=== PATIENT | male | born 1950 | race Caucasian/White ===

== ENCOUNTER 2024-08-25 12:10 | Outpatient (AMB) | payer MEDICARE, SELFPAY ==
[2024-08-25 12:36] VITALS: BP 118/70; PULSE 70; RESP 18; TEMP 36.6; O2SAT 96; BMI 23.1
--- NOTE | 2024-08-25 12:36 | MHC.PC.OV ---
Vital Signs 08/25/24 12:36 Height 5 ft 5.87 in Weight 142 lb 9.6 oz BMI 23.1 BP 118/70 Blood Pressure Location Lt brachial Position Sitting Respiration 18 Pulse 70 Pulse Source Pulse Oximeter Temp 97.8 F Temp Source Oral Pulse Oximetry (%) 96 Oxygen Delivery Method Room Air Intake Visit Reasons: establish care /Thyroid Intake Note: Patient is a new patient here to establish. Transferring care from Dr. Ebenezer Rubio in [place], [place]. Medical records Release of Information has been signed today. Medical records have not yet been received. However, patient has records of lab results and COVID vaccinations, in-hand today. Motocross Racer Required: No Accompanied by: Self / Same As Patient Allergies aspirin Allergy (Severe, Verified 08/25/24 13:07) Anaphylaxis ibuprofen [From Advil] Allergy (Severe, Verified 08/25/24 13:07) Anaphylaxis Medication List - Last Reconciled 08/25/24 by ZACH Soto atorvastatin 20 mg PO DAILY levothyroxine (Synthroid) 50 mcg PO DAILY Tobacco use date assessed: 08/25/24 Fall risk assessment: No Falls in past year Last assessed Fall Risk: 08/25/24 Dental Screening Dental Screen Date: 08/25/24 Did you have a dental visit in the last 12 months?: Yes Did you have a dental problem in the last 6 months where you did not have access to dental care?: No Was dental information given to patient?: Patient has dentist HPI establish care /Thyroid HPI Details Previous PCP: Dr. Ebenezer Rubio in [place], [place] Last visit:June, Last PE: same Specialist: no, He was going to the global program manager, but stopped OBGYN:n/a Past medical history: Hypothyroidism, high cholesterol Medications: Family HX: Father-was born with congenital issue in is kidney, causing back flow resulting frequent glomerulonephritis, Reports that his father had dialysis for 12 years, but he from Parkinson's disease, both sides of his family had diabetes, but none of his parents had it, sister of breast cancer at 57 y/o Problem: The patient reports that he is feeling well and there is no problem He is just here to establish care Reports that he had a colonoscopy- in March 2024, a benign polyp was found and as far as he know there was no concern The patient denies chest pain, sob, heart palpitation, or dizziness Denies any changes in bowel habits or any urinary symptoms PFSH Medical History (Updated 08/25/24 @ 13:50 by ZACH Soto) High cholesterol Hypothyroidism Surgical History History of tonsillectomy and adenoidectomy Family History Father Vesicoureteral reflux Glomerulonephritis Parkinson disease Mother Hypotension Other Congenital kidney disease Diabetes Social History Household Members: Spouse Household Members Other:: Adopted Son [facility] Do you presently have visiting nurse or other home services: No 75 years or older and lives alone: No Alcohol intake: never Patient Tobacco Use Status: Never used Tobacco e-Cigarette/Vaping Use: Never Used service: No Current occupational status: retired Cognitive needs: No Hearing needs: No Vision needs: Yes Questionnaire PHQ-9 Over the last 2 weeks, how often have you been bothered by any of the following problems? 1. Little interest or pleasure in doing things: not at all 2. Feeling down, depressed, or hopeless: not at all 3. Trouble falling or staying asleep, or sleeping too much: not at all 4. Feeling tired or having little energy: not at all 5. Poor appetite or overeating: not at all 6. Feeling bad about yourself - or that you are a failure or have let yourself or your family down: not at all 7. Trouble concentrating on things, such as reading the newspaper or watching television: not at all 8. Moving or speaking so slowly that other people could have noticed. Or the opposite - being so fidgety or restless that you have been moving around a lot more than usual: not at all 9. Thoughts that you would be better off or of hurting yourself in some way: not at all Total score: 0 Depression Screening Interpretation: Negative Depression Screening Done: Yes 18849 - PHQ-9 Billing: Yes Source: Developed by Drs. Arun Quiles, Yessica Hunter, Zachary Colunga and colleagues, with an educational yennifer from [employer]. Thrive Questionnaire Date Thrive assessed: 08/25/24 I am a: Patient What is your living situation today?: I have a steady place to live Within the past 12 months, did the food you bought not last and you didn't have the money to get more?: Never true Within the past 12 months, did you worry whether your food would run out before you got money to buy more?: Never true Do you have trouble paying for medicines?: No Do you have trouble getting transportation to medical appointments?: No Do you have trouble paying your heating and electricity bill?: No Do you have trouble taking care of your child, family member or friend?: No Do you have trouble with day-to-day activities such as bathing, preparing meals, shopping, managing finances, etc.?: No Are you currently unemployed and looking for a job?: No Are you interested in more education?: No Please select the resources that you would like help with: Paying for medicine Currently or been in a relationship where the following occur: No concerns reported THRIVE Score: 0 AUDIT C Alcohol Use Questionnaire (AUDIT-C) 1. How often do you have a drink containing alcohol?: Never 3. How often do you have six or more drinks on one occasion?: Never Total Score: 0 YOGESH-7 AMB Questionnaire YOGESH-7 Date YOGESH - 7 assessed: 08/25/24 Feeling nervous, anxious, or on edge: 0 = Not at all Not being able to stop or control worryin = Not at all Worrying too much about different things: 0 = Not at all Trouble relaxin = Not at all Being so restless that it is hard to sit still: 0 = Not at all Becoming easily annoyed or irritable: 0 = Not at all Feeling afraid as if something awful might happen: 0 = Not at all Total YOGESH-7 score (0-4 normal; 5-9 mild; 10-14 moderate; 15-21 severe): 0 Source: Developed by Drs. Arun Quiles, Yessica Hunter, Zachary Colunga and colleagues, with an educational yennifer from [employer]. YOGESH-7 Assessment Billing YOGESH-7 Assessment Tool: YOGESH-7 Assessment 04752 Review of Systems Const Denies headache(s) Eyes Denies loss of vision ENT Denies vertigo, Denies dizziness, Denies headache(s) and Denies sore throat Card Denies chest pain, Denies leg edema and Denies lightheadedness Resp Denies cough, Denies hemoptysis and Denies wheezing GI Denies abdominal pain, Denies melena, Denies constipation, Denies diarrhea and Denies vomiting Denies dysuria, Denies urinary frequency and Denies urinary urgency Musc Denies arthralgias, Denies joint swelling, Denies numbness and Denies tingling Neuro Denies Abnormal speech present, Denies behavioral changes, Denies vertigo, Denies dizziness, Denies headache(s), Denies loss of vision, Denies memory loss, Denies numbness and Denies tingling Psych Denies anxiety, Denies behavioral changes, Denies depression, Denies memory loss and Denies panic attacks Brad/Lymph Denies easy bleeding and Denies easy bruising Aller/Immun Denies wheezing Physical exam (Primary Care) Vital Signs: Last Vital Signs Temp 97.8 F 08/25/24 12:36 Pulse 70 08/25/24 12:36 Resp 18 08/25/24 12:36 BP 118/70 08/25/24 12:36 Pulse Ox 96 08/25/24 12:36 Oxygen Delivery Method Room Air 08/25/24 12:36 BMI result Body Mass Index 23.1 Tobacco/Smoking Status: Tobacco use Status Tobacco use date assessed 08/25/24 08/25/24 12:40 Patient Tobacco Use Status Never used Tobacco 08/25/24 12:59 e-Cigarette/Vaping Use Never Used 08/25/24 12:59 PHQ-9: PHQ-9 Score PHQ-9: Total score 0 08/25/24 13:29 Depression Screening Interpretation: Negative Thrive Assessment: Date of Thrive Assessment Date Thrive assessed 08/25/24 08/25/24 12:40 Currently or been in a relationship where the following occur: No concerns reported Const General: healthy appearing, no acute distress, alert and awake Nutritional Appearance: well nourished Orientation/consciousness: oriented to person, oriented to place and oriented to time HENMT Ears: TM's normal bilaterally General nose exam: Normal nasal mucous membranes and turbinates present Eyes Conjunctivae: conjunctivae normal Sclerae: sclerae normal Pupils: Equal, round and reactive pupils present Neck Neck: Yes no lymphadenopathy and Yes no JVD Thyroid: Thyroid normal Carotids: no bruits Resp Effort & Inspection: normal respiratory effort and not tachypneic Auscultation: no crackles, no rales, no rhonchi and no wheezes Cardio Rate: regular rate Rhythm: regular rhythm Heart sounds: no murmurs and normal S1 and S2 GI Palpation (GI): Soft to palpation, nontender, no hepatomegaly and no splenomegaly Auscultation: normal bowel sounds Skin General skin exam: no rashes or lesions noted and dry skin Neuro General: oriented to person, oriented to place and oriented to time Cranial nerves: Yes Equal, round and reactive pupils present Speech: No Abnormal speech present Gait exam (Neuro): Normal gait present Motor exam (neuro): no tremor noted Extrem Right upper extremity: full ROM Left upper extremity: full ROM Right lower extremity: full ROM; no edema Left lower extremity: full ROM; no edema Psych Mental Status: mental status grossly normal Speech and movement: Normal speech and movement present Affect: normal affect Attitude: cooperative Thought process: Normal thought process present Coding Level of Care Code New Pt Level 4 (93892) Diagnoses Hypothyroidism, unspecified type E03.9 Hypothyroidism type: unspecified High cholesterol E78.00 Elevated liver enzymes R74.8 Additional Codes YOGESH-7 Assessment Billing - YOGESH-7 Assessment Tool: YOGESH-7 Assessment 67522 ([id number]) PHQ-9 - 61643 - PHQ-9 Billing: Yes ([id number]) Time Spent (min) 39 Assessment & Plan Assessment & Plan (1) Hypothyroidism: Code(s): E03.9 - Hypothyroidism, unspecified Category: Medical Qualifiers: Hypothyroidism type: unspecified Qualified Code(s): E03.9 - Hypothyroidism, unspecified Plan: Continue levothyroxine 50 mcg daily Will recheck labs in 3 months (2) High cholesterol: Code(s): E78.00 - Pure hypercholesterolemia, unspecified Category: Medical Plan: cholesterol slightly elevated continue atorvastatin 20 mg daily Will recheck lipid in 3 month (3) Elevated liver enzymes: Code(s): R74.8 - Abnormal levels of other serum enzymes Category: Medical Plan: LFTs slightly elevated, discussed with the patient to avoid the common triggers like alcohom and Tylenol will recheck labs in the 3 months Orders: Orders Vitamin D 25-OH Total 3 Months E03.9 - Hypothyroidism, unspecified, E78.00 - Pure hypercholesterolemia, unspecified TSH reflex Free T4 3 Months E03.9 - Hypothyroidism, unspecified, E78.00 - Pure hypercholesterolemia, unspecified UA CC w/rflx Micro + Cult 3 Months E03.9 - Hypothyroidism, unspecified, E78.00 - Pure hypercholesterolemia, unspecified Glucose Fasting 3 Months E03.9 - Hypothyroidism, unspecified, E78.00 - Pure hypercholesterolemia, unspecified Hemoglobin A1c 3 Months E03.9 - Hypothyroidism, unspecified, E78.00 - Pure hypercholesterolemia, unspecified Complete Blood Count Auto Diff 3 Months E03.9 - Hypothyroidism, unspecified, E78.00 - Pure hypercholesterolemia, unspecified Comprehensive [place]. Panel Fast 3 Months E03.9 - Hypothyroidism, unspecified, E78.00 - Pure hypercholesterolemia, unspecified Lipid Panel 3 Months E03.9 - Hypothyroidism, unspecified, E78.00 - Pure hypercholesterolemia, unspecified Free T4 (Free Thyroxine) 3 Months E03.9 - Hypothyroidism, unspecified, E78.00 - Pure hypercholesterolemia, unspecified
== END 2024-08-25 13:40 | disposition home or self-care (01) ==
LOC: HO.HMCH 12:11
DX: E03.9 Hypothyroidism, unspecified (principal); E78.00 Pure hypercholesterolemia, unspecified; R74.8 Abnormal levels of other serum enzymes

== ENCOUNTER → 2024-08-25 12:10 | Outpatient (BNVA) | payer MEDICARE, SELFPAY | DX: E03.9 Hypothyroidism, unspecified (principal); E78.00 Pure hypercholesterolemia, unspecified; R74.8 Abnormal levels of other serum enzymes | CPT/HCPCS: 96127; 99202 ==

== ENCOUNTER 2024-10-01 10:09 | Outpatient (REF) | payer MEDICARE, SELFPAY ==
[2024-10-01 10:46] LABS: MANUAL DIFF FLAG NO
[2024-10-01 10:58] LABS: Basophils Absolute Auto 0.1 X10*3/uL (0.0-0.2); Eosinophils Absolute Auto 0.3 X10*3/uL (0.0-0.4); Eosinophils Percent Auto 3.8 % (0-4); Hematocrit 39.8 % (42.0-52.0); Hemoglobin 13.5 g/dl (14.0-18.0); Imm Gran Pct Auto 1.3 % (0.0-0.4); Lymphocytes Absolute Auto 1.5 X10*3/uL (1.2-4.9); Lymphocytes Percent Auto 18.4 % (20-40); Mean Corpuscular HGB Conc 33.9 g/dl (31.0-36.0); Mean Corpuscular Hemoglobin 30.7 pg (27.0-33.0); Mean Corpuscular Volume 90.5 fL (80.0-98.0); Mean Platelet Volume 9.3 fL (9.4-12.4); Monocytes Percent Auto 11.9 % (2-11); Neutrophils Absolute Auto 5.1 x10*3/uL (2.0-8.3); Neutrophils Percent Auto 63.6 % (45-73); Platelet Count 319 X10*3/uL (160-400); Red Cell Distribution Width 15.3 % (11.0-16.0)
[2024-10-01 11:23] LABS: Alanine Aminotransferase 34 U/L (0-40); Albumin Level 4.1 g/dL (3.5-5.0); Anion Gap 10 (12-20); Aspartate Amino Transferase 26 U/L (5-37); Bilirubin Total 0.6 mg/dL (0.0-1.0); Blood Urea Nitrogen 18 mg/dL (9-16); Calcium 9.6 mg/dL (8.4-10.2); Carbon Dioxide 29 mmol/L (22-29); Chloride 105 mmol/L (96-108); Estimated Glomerular Filt Rate > 60; Glucose Random 86 mg/dL (60-115); Potassium 4.1 mmol/L (3.3-5.1); Sodium 140 mmol/L (135-145); Total Protein 6.8 g/dL (6.5-8.0)
[2024-10-01 19:44] LABS: Alkaline Phosphatase 72 U/L (39-117)
== END 2024-10-01 10:10 | disposition home or self-care (01) ==
LOC: HO.LAB 10:09
PROVIDERS: Visit Provider Surgery
DX: K40.20 Bilateral inguinal hernia, without obstruction or gangrene, not specified as recurrent (principal)
CPT/HCPCS: 36415; 80053; 85025

== ENCOUNTER 2024-10-20 11:14 | Outpatient (REF) | payer MEDICARE, SELFPAY ==
--- NOTE | ~2024-10-20 | CT_ITS ---
EXAMINATION: CT ABDOMEN AND PELVIS WITH CONTRAST CLINICAL INFORMATION: Bilateral inguinal hernias. COMPARISON: None available. TECHNIQUE: Multidetector volumetric images were obtained from the superior aspect of the liver through the pubic symphysis following administration 85 mL of Omnipaque 350 intravenous contrast. Sagittal and coronal reformatted images were obtained on the technologist's workstation. Oral contrast: Yes This CT examination was performed using dose optimization techniques as appropriate, variously including the following: *Automated exposure control *Adjustment of mA and/or kV according to patient size (this includes techniques or standardized protocols for targeted exams where dose is matched to indication/reason for exam; i.e. extremities or head) *Use of iterative reconstruction technique DLP: 386 mGy centimeter. FINDINGS: LUNG BASES: No acute airspace disease. LIVER, GALLBLADDER, AND BILIARY TREE: Liver measures 15 cm. No focal mass. Portal veins, hepatic veins and intrahepatic portion of the IVC are patent. No intrahepatic biliary ductal dilatation. Small focal fatty infiltration adjacent to the falciform ligament. No pericholecystic fluid collection or gallbladder wall thickening. No extrahepatic biliary ductal dilatation. PANCREAS: No focal mass. No peripancreatic fluid collection. No main pancreatic ductal dilatation. SPLEEN: Subcentimeter. No focal lesion. ADRENAL GLANDS: No nodular lesion. KIDNEYS AND URETERS: No hydronephrosis. No gross nephrolithiasis. Normal enhancement pattern of the renal parenchyma. BLADDER: Fluid-filled. GASTROINTESTINAL TRACT: Abundant stool, right hemicolon and transverse colon. No intestinal obstruction pattern. Appendix is normal. Terminal ileum is normal. No pneumatosis intestinalis. Questionable wall thickening, second portion duodenum. ABDOMINAL WALL: Small right inguinal hernia containing a protrusion of the anterior right lateral wall of the bladder. Small left inguinal hernia containing a short segment demonstrated nondilated sigmoid colon. Small fat-containing umbilical hernia. LYMPH NODES: Nonspecific prominent mesenteric and retroperitoneum. VASCULAR: No aneurysm or dissection, abdominal aorta. Calcified plaques in the abdominal aorta wall and the origin of the iliac arteries and the iliac arteries. Celiac trunk as seen separate origin for the pancreatic, hepatic arteries. PELVIC VISCERA: Not enlarged prostate gland or seminal vesicles. OSSEOUS STRUCTURES: Facet joint hypertrophy at L4-5 and L5-S1. Spina bifida occulta S1. Degenerative changes in the sacroiliac joints and ischium. Subchondral cyst formation in the acetabular and femoral heads. S-shaped curvature of the thoracolumbar spine. Grade 1 retrolisthesis L1 to and L2-[address]/CT abdomen pelvis w IV con IMPRESSION: Bilateral inguinal hernias on the right containing small portion of the bladder and on the left short segment nondilated sigmoid colon. Small fat-containing hernia. Multilevel thoracolumbar spondylosis and scoliosis resulting in grade 1 retrolisthesis L1-2 and L2-3. Fleischner guidelines were followed. Electronically signed by: Robert Resendez MD 10/20/2024 02:04 PM EDT RP
[2024-10-20] MEDS: iohexoL 350 MG/ML 100 ML INFUS..BTL IV (13:43)
[2024-10-20] MEDS: Barium Sulfate Oral (Berry) 450 ML ORAL.SUSP 900 ML PO (13:46)
[2024-10-20 15:26] LABS: Creatinine POC 0.9 mg/dL (0.5-1.4); GFR POC > 60
== END 2024-10-20 11:15 | disposition home or self-care (01) ==
LOC: HO.CT 11:14
PROVIDERS: Visit Provider Surgery
DX: K40.20 Bilateral inguinal hernia, without obstruction or gangrene, not specified as recurrent (principal)
CPT/HCPCS: 74177; 82565; Q9967

== ENCOUNTER → 2024-10-20 13:39 | Outpatient (BNV) | payer MEDICARE, SELFPAY | PROVIDERS: Visit Provider Radiology Diagnostic Radiology | DX: K40.90 Unilateral inguinal hernia, without obstruction or gangrene, not specified as recurrent (principal); M47.817 Spondylosis without myelopathy or radiculopathy, lumbosacral region | CPT/HCPCS: 74177 ==

== ENCOUNTER 2025-03-09 06:42 | Outpatient (REF) | payer MEDICARE, SELFPAY ==
[2025-03-09 06:52] LABS: MANUAL DIFF FLAG NO
[2025-03-09 07:46] LABS: Hematocrit 40.2 % (42.0-52.0); Hemoglobin 13.9 g/dl (14.0-18.0); Imm Gran Abs Auto 0.03 X10*3/uL (0.00-0.03); Imm Gran Pct Auto 0.5 % (0.0-0.4); Lymphocytes Absolute Auto 1.3 X10*3/uL (1.2-4.9); Mean Corpuscular HGB Conc 34.6 g/dl (31.0-36.0); Mean Corpuscular Hemoglobin 31.4 pg (27.0-33.0); Mean Corpuscular Volume 90.7 fL (80.0-98.0); NRBC Abs Auto 0.000 X10*3/uL (0.0-0.012); NRBC Pct Auto 0.0 /100WBC (0.0-0.2); Platelet Count 322 X10*3/uL (160-400); Red Blood Count 4.43 X10*6/uL (4.60-5.80); White Blood Count 6.2 X10*3/uL (4.8-10.8)
[2025-03-09 07:57] LABS: Hemoglobin A1C 135.0247 umol/L; Total Hemoglobin (HGBA1C) 3594.4645 umol/L
[2025-03-09 08:13] LABS: Appearance Urine Clear; Glucose Urine UA Negative (Negative); PH 7.0 (5.0-9.0); Specific Gravity - Urine 1.015 (1.005-1.025)
[2025-03-09 08:26] LABS: Alanine Aminotransferase 34 U/L (0-40); Albumin Level 4.3 g/dL (3.5-5.0); Alkaline Phosphatase 89 U/L (39-117); Anion Gap 12 (12-20); Aspartate Amino Transferase 38 U/L (5-37); Blood Urea Nitrogen 14 mg/dL (9-16); Calcium 9.0 mg/dL (8.4-10.2); Carbon Dioxide 26 mmol/L (22-29); Chloride 105 mmol/L (96-108); Cholesterol 214 mg/dL (<200); Estimated Glomerular Filt Rate > 60; Free T4 (Free Thyroxine) 0.95 ng/dL (0.71-1.85); HDL Cholesterol 118 mg/dL (>40); Potassium 4.2 mmol/L (3.3-5.1); Sodium 139 mmol/L (135-145); Total Protein 6.9 g/dL (6.5-8.0); Triglycerides 45 mg/dL (<150)
== END 2025-03-09 06:43 | disposition home or self-care (01) ==
LOC: HO.LAB 06:42
DX: Z13.1 Encounter for screening for diabetes mellitus (principal); Z13.21 Encounter for screening for nutritional disorder; E03.9 Hypothyroidism, unspecified; E78.00 Pure hypercholesterolemia, unspecified
CPT/HCPCS: 36415; 80053; 80061; 81003; 82306; 83036; 84439; 84443; 85025

== ENCOUNTER 2025-06-15 11:31 | Outpatient (AMB) | payer MEDICARE, SELFPAY ==
[2025-06-15 11:45] VITALS: BP 114/66; PULSE 69; RESP 18; O2SAT 95; BMI 24.1
--- NOTE | 2025-06-15 11:45 | A.OFFPC_ITS ---
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 Accompanied by: Self / Same As Patient Allergies aspirin Allergy (Severe, Verified 06/17/25 00:11) Anaphylaxis ibuprofen (From Advil) Allergy (Severe, Verified 06/17/25 00:11) Anaphylaxis Medication List - Last Reconciled 06/17/25 by ZACH Soto atorvastatin 20 mg PO DAILY levothyroxine (Unithroid) 50 mcg PO DAILY Tobacco use date assessed: 06/15/25 Fall risk assessment: No Falls in past year Last assessed Fall Risk: 06/15/25 Dental Screening Dental Screen Date: 06/15/25 Did you have a dental visit in the last 12 months?: Yes Did you have a dental problem in the last 6 months where you did not have access to dental care?: No Was dental information given to patient?: Patient has dentist HPI HPI Comments History of Present Illness Details The patient is a 75 year old male presenting for follow up on his chronic conditions, discussion of recent lab results, and medication refills. The patient has a history of mild anemia, with recent labs showing slight improvement. He does not experience fatigue from this condition. He reports having previously stopped taking Centrum multivitamins because he almost choked on the large pill. The patient has a history of hypothyroidism managed with levothyroxine. He also has hyperlipidemia, for which he takes atorvastatin. His family history is significant for his father dying from a stroke at age 65 due to high cholesterol. The patient's HbA1c is 5.6%, placing him near the prediabetic range. He has a history of slightly elevated liver enzymes and had a FibroScan in [place] that was reportedly normal. The patient reports receiving the COVID-19 vaccine but declines the annual influenza vaccine due to a history of adverse reactions. His last flu and pneumonia vaccinations were in 2013, and he has not had the RSV vaccine. He recently experienced a bad cold two days after returning from a trip to [place]. The patient has a history of cerumen impaction and has been previously advised to use ear drops. Health Maintenance The patient is up to date on his COVID-19 vaccine. He declines the influenza vaccine due to a history of adverse reactions and has not received the RSV vaccine. He was counseled on taking precautions to avoid respiratory infections, such as wearing a mask in crowded settings like airplanes. Social History - Travel: The patient frequently travels between his current residence and [place]. - Family history: His father from a stroke at age 65 due to high cholesterol. - Substance Use: He was advised to decre ase alcohol intake if he drinks, though his current consumption was not specified. Results - Labs: - Hemoglobin: Slightly low, consistent w ith mild anemia. - Glucose: Slightly elevated. - Hemoglobin A1c: 5.6%. - Bilirubin: Slightly elevated. - AST: Minimally elevated at 38 U/L (ref erence range 5-37 U/L). - Kidney function (BUN, creatinine): Nor mal. - Electrolytes: Normal. - Lipid Panel: HDL cholesterol is 118 mg /dL; LDL cholesterol is 87 mg/dL. - Thyroid function tests: Normal. - Tests and Diagnostics: - FibroScan: A prior scan performed in [facility] was reportedly normal. [facility] Medical History High cholesterol Hypothyroidism Surgical History History of tonsillectomy and adenoidectomy Family History Father Vesicoureteral reflux Glomerulonephritis Parkinson disease Mother Hypotension Other Congenital kidney disease Diabetes Social History Household Members: Spouse Household Members Other:: Adopted Son Housing: Condominium Do you presently have visiting nurse or other home services: No 75 years or older and lives alone: No Alcohol intake: never Patient Tobacco Use Status: Never used Tobacco e-Cigarette/Vaping Use: Never Used service: No Current occupational status: retired Cognitive needs: No Hearing needs: No Vision needs: Yes Questionnaire PHQ-9 Over the last 2 weeks, how often have you been bothered by any of the following problems? Depression Screening Interpretation: Negative Depression Screening Done: Yes Source: Developed by Drs. Arun Quiles, Zachary Duggan and colleagues, with an educational yennifer from [employer]. Thrive Questionnaire Date Thrive assessed: 06/15/25 I am a: Patient What is your living situation today?: I have a steady place to live Within the past 12 months, did the food you bought not last and you didn't have the money to get more?: Never true Within the past 12 months, did you worry whether your food would run out before you got money to buy more?: Never true Do you have trouble paying for medicines?: No Do you have trouble getting transportation to medical appointments?: No Do you have trouble paying your heating and electricity bill?: No Do you have trouble taking care of your child, family member or friend?: No Do you have trouble with day-to-day activities such as bathing, preparing meals, shopping, managing finances, etc.?: No Are you currently unemployed and looking for a job?: No Are you interested in more education?: No Currently or been in a relationship where the following occur: No concerns reported THRIVE Score: 0 YOGESH-7 AMB Questionnaire YOGESH-7 Date YOGESH - 7 assessed: 08/25/24 Source: Developed by Drs. Arun Quiles, Yessica Hunter, Zachary Colunga and colleagues, with an educational yennifer from [employer]. Review of Systems Narrative Review of Systems - General: Denies fatigue. - Respiratory: Reports a recent bad cold with mucus after traveling. - Otologic: Reports excessive cerumen. Const Denies headache(s) Eyes Denies loss of vision ENT Denies vertigo, Denies dizziness, Denies headache(s) and Denies sore throat Card Denies chest pain, Denies leg edema and Denies lightheadedness Resp Denies cough, Denies hemoptysis and Denies wheezing GI Denies abdominal pain, Denies melena, Denies constipation, Denies diarrhea and Denies vomiting Denies dysuria, Denies urinary frequency and Denies urinary urgency Musc Denies arthralgias, Denies joint swelling, Denies numbness and Denies tingling Neuro Denies Abnormal speech present, Denies behavioral changes, Denies vertigo, Denies dizziness, Denies headache(s), Denies loss of vision, Denies memory loss, Denies numbness and Denies tingling Psych Denies anxiety, Denies behavioral changes, Denies depression, Denies memory loss and Denies panic attacks Brad/Lymph Denies easy bleeding and Denies easy bruising Aller/Immun Denies wheezing Physical exam (Primary Care) Vital Signs: Last Vital Signs Pulse 69 06/15/25 11:45 Resp 18 06/15/25 11:45 BP 114/66 06/15/25 11:45 Pulse Ox 95 06/15/25 11:45 Oxygen Delivery Method Room Air 06/15/25 11:45 BMI result Body Mass Index 24.1 Tobacco/Smoking Status: Tobacco use Status Tobacco use date assessed 06/15/25 06/15/25 11:56 Patient Tobacco Use Status Never used Tobacco 06/15/25 11:56 e-Cigarette/Vaping Use Never Used 06/15/25 11:56 Depression Screening Interpretation: Negative Thrive Assessment: Date of Thrive Assessment Date Thrive assessed 06/15/25 06/15/25 11:56 Currently or been in a relationship where the following occur: No concerns reported Narrative Physical Exam - General: The patient is alert and in no acute distress. - Cardiovascular: Heart sounds are normal on auscultation. - Respiratory: Lungs are clear to auscultation. - Otologic: Significant cerumen noted bilaterally on examination. Const General: healthy appearing, no acute distress, alert and awake Nutritional Appearance: well nourished Orientation/consciousness: oriented to person, oriented to place and oriented to time HENMT Ears: Abnormal EAC present cerumen impaction bilateral General nose exam: Normal nasal mucous membranes and turbinates present Eyes Conjunctivae: conjunctivae normal Sclerae: sclerae normal Pupils: Equal, round and reactive pupils present Neck Neck: Yes no lymphadenopathy and Yes no JVD Thyroid: Thyroid normal Carotids: no bruits Resp Effort & Inspection: normal respiratory effort and not tachypneic Auscultation: no crackles, no rales, no rhonchi and no wheezes Cardio Rate: regular rate Rhythm: regular rhythm Heart sounds: no murmurs and normal S1 and S2 GI Palpation (GI): Soft to palpation, nontender, no hepatomegaly and no splenomegaly Auscultation: normal bowel sounds Skin General skin exam: no rashes or lesions noted and dry skin Neuro General: oriented to person, oriented to place and oriented to time Cranial nerves: Yes Equal, round and reactive pupils present Speech: No Abnormal speech present Gait exam (Neuro): Normal gait present Motor exam (neuro): no tremor noted Extrem Right upper extremity: full ROM Left upper extremity: full ROM Right lower extremity: full ROM; no edema Left lower extremity: full ROM; no edema Psych Mental Status: mental status grossly normal Speech and movement: Normal speech and movement present Affect: normal affect Attitude: cooperative Thought process: Normal thought process present Results Reviewed Results Reviewed: Laboratory Tests 03/09/25 03/09/25 06:48 06:51 WBC 6.2 RBC 4.43 L Hgb 13.9 L Hct 40.2 L MCV 90.7 MCH 31.4 MCHC 34.6 RDW 14.6 Plt Count 322 Sodium 139 Potassium 4.2 Chloride 105 Carbon Dioxide 26 Anion Gap 12 BUN 14 Creatinine 1.06 Estim Creat Clear Calc Not Reportable Estimated GFR > 60 Fasting Glucose 111 H Estimat Average Glucose 114 Hemoglobin A1c % 5.6 Calcium 9.0 D Total Bilirubin 1.2 H AST 38 H ALT 34 Alkaline Phosphatase 89 Total Protein 6.9 Albumin 4.3 Triglycerides 45 Cholesterol 214 H LDL Cholesterol, Calc 87 HDL Cholesterol 118 25-OH Vitamin D Total 41.4 TSH 3.06 Free T4 0.95 Urine Color Yellow Urine Appearance Clear Urine pH 7.0 Ur Specific [place] 1.015 Urine Protein Negative Urine Glucose (UA) Negative Urine Ketones Negative Urine Blood Negative Urine Nitrite Negative Ur Leukocyte Esterase Negative Coding Level of Care Code Est Pt Level 4 (23810) Diagnoses Hypothyroidism, unspecified type E03.9 Hypothyroidism type: unspecified High cholesterol E78.00 Elevated liver enzymes R74.8 Anemia, unspecified type D64.9 Anemia type: unspecified type Prediabetes R73.03 Bilateral impacted cerumen H61.23 Laterality: bilateral Time Spent (min) 38 Assessment & Plan Assessment & Plan (1) Hypothyroidism: Code(s): E03.9 - Hypothyroidism, unspecified Category: Medical Qualifiers: Hypothyroidism type: unspecified Qualified Code(s): E03.9 - Hypothyroidism, unspecified (2) High cholesterol: Code(s): E78.00 - Pure hypercholesterolemia, unspecified Category: Medical (3) Elevated liver enzymes: Code(s): R74.8 - Abnormal levels of other serum enzymes Category: Medical (4) Anemia: Code(s): D64.9 - Anemia, unspecified Category: Medical Qualifiers: Anemia type: unspecified type Qualified Code(s): D64.9 - Anemia, unspecified (5) Prediabetes: Code(s): R73.03 - Prediabetes Category: Medical (6) Cerumen impaction: Code(s): H61.20 - Impacted cerumen, unspecified ear Category: Medical Qualifiers: Laterality: bilateral Qualified Code(s): H61.23 - Impacted cerumen, bilateral Plan Plan Patient was informed and verbally consented to the use of an ambient scribe for clinic note documentation during this visit. 1. Mild Anemia The patient has a very mild anemia that has improved slightly and is asymptomatic. The underlying cause is unclear. Further evaluation will include checking iron, B12, and folate levels with the next lab draw. Discussed taking a multivitamin such as Centrum, with a recommendation for a liquid or gummy form due to a prior choking incident with a large pill. 2. Hypothyroidism The patient's hypothyroidism is well-controlled on his current medication, with normal thyroid labs. A refill for levothyroxine will be sent to the [facility] in [place] as requested. The patient's request for a specific apricot washer was noted, but it was explained that all generic versions are FDA- approved to the same standard. 3. Hyperlipidemia The patient's hyperlipidemia is well-managed on atorvastatin, with an excellent LDL of 87 and a cardioprotective HDL of 118. Given the family history of a fatal stroke related to high cholesterol, the benefit of statin therapy outweighs the minimal risk of slightly elevated liver enzymes. He will continue his current dose of atorvastatin. 4. Elevated Liver Transaminases The patient has a minimally elevated AST of 38, which is not clinically concerning. This is likely a side effect of atorvastatin, but his other liver function tests are normal and a prior FibroScan in [place] was reassuring. The patient was advised to limit potential liver stressors such as alcohol, excessive Tylenol use, and fatty foods. The plan is to continue monitoring with routine labs. 5. Prediabetes The patient's hemoglobin A1c is 5.6%, which is just below the diagnostic threshold for prediabetes. His status will be monitored with future lab work. 6. Cerumen Impaction Physical exam revealed significant cerumen in the patient's ear canals. The patient was advised to use ear wax removal drops twice a day for five days, followed by gentle irrigation with warm water using a bulb syringe to clear the impaction. Discussion Notes I reviewed the patient's recent lab results with him. I explained that his anemia is very mild and asymptomatic, and we will investigate its cause further by checking his iron, B12, and folate levels. We discussed starting a multivitamin, and I recommended a liquid or gummy version for easier swallowing. I noted the AST is minimally elevated at 38, likely related to his atorvastatin, and I reassured him that this is not concerning. I emphasized that the benefit of the statin for preventing stroke or heart attack, especially given his family history, far outweighs this minimal risk. I informed him that his HbA1c of 5.6% is not in the prediabetic range but is close, and that his cholesterol panel is excellent with a very high protective HDL. I addressed the cerumen impaction noted on exam and reviewed instructions for home treatment with ear drops and a bulb syringe. We also discussed his recent cold and the risk of respiratory viruses, and I advised taking precautions like wearing a mask since he declines the flu vaccine. Finally, I confirmed that I will send his levothyroxine refill to his new preferred pharmacy. Patient Instructions - We will check your iron, vitamin B12, and folate levels with your next blood test to investigate the mild anemia. - You can consider taking a multivitamin like Centrum; a liquid or gummy form may be easier for you to swallow. - Continue taking your cholesterol medication (atorvastatin) as prescribed; it is working very well to protect your heart. - I am sending a refill of your thyroid medication (levothyroxine) to the [facility] in [facility]. - For the wax buildup in your ears, use earwax removal drops twice a day for five days. - After using the drops, you can gently rinse your ears with warm water using a bulb syringe. - To avoid getting sick with the flu or other viruses, be careful in crowded places and consider wearing a mask, especially on airplanes. Orders: Orders Vitamin D 25-OH Total 4 Months E03.9 - Hypothyroidism, unspecified, E78.00 - Pure hypercholesterolemia, unspecified, R74.8 - Abnormal levels of other serum enzymes Hemoglobin A1c 4 Months E03.9 - Hypothyroidism, unspecified, E78.00 - Pure hypercholesterolemia, unspecified, R74.8 - Abnormal levels of other serum enzymes IRON PROFILE 4 Months E03.9 - Hypothyroidism, unspecified, E78.00 - Pure hypercholesterolemia, unspecified, R74.8 - Abnormal levels of other serum enzymes Vitamin B12 and Folate 4 Months E03.9 - Hypothyroidism, unspecified, E78.00 - Pure hypercholesterolemia, unspecified, R74.8 - Abnormal levels of other serum enzymes Complete Blood Count Auto Diff 4 Months E03.9 - Hypothyroidism, unspecified, E78.00 - Pure hypercholesterolemia, unspecified, R74.8 - Abnormal levels of other serum enzymes Comprehensive [place]. Panel Fast 4 Months E03.9 - Hypothyroidism, unspecified, E78.00 - Pure hypercholesterolemia, unspecified, R74.8 - Abnormal levels of other serum enzymes UA CC w/rflx Micro + Cult 4 Months E03.9 - Hypothyroidism, unspecified, E78.00 - Pure hypercholesterolemia, unspecified, R74.8 - Abnormal levels of other serum enzymes TSH reflex Free T4 4 Months E03.9 - Hypothyroidism, unspecified, E78.00 - Pure hypercholesterolemia, unspecified, R74.8 - Abnormal levels of other serum enzymes Lipid Panel 4 Months E03.9 - Hypothyroidism, unspecified, E78.00 - Pure hypercholesterolemia, unspecified, R74.8 - Abnormal levels of other serum enzymes Medications: Refilled levothyroxine (Unithroid) 50 mcg PO DAILY 90 tabs 0RF levothyroxine (Unithroid) 50 mcg PO DAILY 90 tabs 3RF
== END 2025-06-15 12:29 | disposition home or self-care (01) ==
LOC: HO.HMCH 11:32
DX: E03.9 Hypothyroidism, unspecified (principal); E78.00 Pure hypercholesterolemia, unspecified; R74.8 Abnormal levels of other serum enzymes; D64.9 Anemia, unspecified; R73.03 Prediabetes; H61.23 Impacted cerumen, bilateral

== ENCOUNTER → 2025-06-15 11:31 | Outpatient (BNVA) | payer MEDICARE, SELFPAY | DX: D64.9 Anemia, unspecified (principal); E03.9 Hypothyroidism, unspecified; E78.5 Hyperlipidemia, unspecified; R74.8 Abnormal levels of other serum enzymes; R73.03 Prediabetes; H61.23 Impacted cerumen, bilateral; Z28.29 Immunization not carried out because of patient decision for other reason; Z71.9 Counseling, unspecified | CPT/HCPCS: 99212 ==